=== PATIENT | male | born 1945 | race Caucasian/White ===

== ENCOUNTER → 2025-06-06 | Outpatient (CLI) | payer MEDICARE ==
[~2025-06-06] MED LIST: CEPH500C2 MT; SULF1TAB48 MT
[2025-06-06 10:49] LABS: CREATININE 1.1 mg/dL (0.6-1.3)
[2025-06-06 10:50] LABS: UREA NITROGEN BLOOD 20 mg/dL (9-23)
[2025-06-06 10:51] LABS: ASPARTATE AMINOTRANSFERASE 30 IU/L (<34)
[2025-06-06 10:52] LABS: BILIRUBIN TOTAL 1.0 mg/dL (0.1-1.0); PROTEIN TOTAL 6.4 g/dL (6.0-8.3)
[2025-06-07 09:07] LABS: % FREE PSA 17.6 % (.); PROSTATE SPECIFIC AG TOTAL 3.4 ng/mL (0.0-4.0); PSA FREE 0.60 ng/mL
[2025-06-09 19:10] LABS: TESTOSTERONE FREE 15.4 pg/mL (6.6-18.1)
== END | disposition home or self-care (01) ==
LOC: LAB 09:34
PROVIDERS: ATTEND Urology
DX: N40.1 Benign prostatic hyperplasia with lower urinary tract symptoms (principal); E29.1 Testicular hypofunction
CPT/HCPCS: 36415; 80053; 84153; 84154; 84402; 84403; 85014